=== PATIENT | female | born 1960 | race Two or more races ===

== ENCOUNTER 2020-09-12 17:03 | Emergency (ER) | payer OTHER ==
[~2020-09-12] VITALS: Ht 172.7 cm; Wt 81.6 kg
[~2020-09-12 17:03] MED LIST: LAMICTAL25 MG; PAXIL30 MG
== END 2020-09-12 22:31 | disposition home or self-care (01) ==
LOC: ER 17:03
DX: M94.0 Chondrocostal junction syndrome [Tietze] (principal)

== ENCOUNTER 2021-08-26 15:20 | Emergency (ER) | payer OTHER ==
[~2021-08-26] VITALS: Ht 172.7 cm; Wt 79.4 kg
[2021-08-26] MEDS ORDERED: PAROXETINE HCL20 MG PO (15:40)
== END 2021-08-26 20:11 | disposition home or self-care (01) ==
LOC: ER 15:20
DX: R53.81 Other malaise (principal); R07.89 Other chest pain; Z20.822 Contact with and (suspected) exposure to COVID-19

== ENCOUNTER 2022-09-12 14:40 | Emergency (ER) | payer OTHER ==
[~2022-09-12] VITALS: Ht 172.7 cm; Wt 78.9 kg
[~2022-09-12 14:40] MED LIST changes: +PAROXETINE HCL20 MG PO
[2022-09-12] MEDS ORDERED: ESTAZOLAM2 MG PO (15:06)
== END 2022-09-12 16:35 | disposition home or self-care (01) ==
LOC: ER 14:40
DX: G44.209 Tension-type headache, unspecified, not intractable (principal)

== ENCOUNTER 2023-03-06 15:34 | Emergency (ER) | payer OTHER ==
[~2023-03-06] VITALS: Ht 167.6 cm; Wt 79.4 kg
[~2023-03-06 15:34] MED LIST changes: +ESTAZOLAM2 MG PO
== END 2023-03-06 18:56 | disposition home or self-care (01) ==
LOC: ER 15:35
DX: L03.114 Cellulitis of left upper limb (principal)
CPT/HCPCS: 96365; 99282; J1885